=== PATIENT | male | born 1945 | race Caucasian/White ===

== ENCOUNTER 2025-11-08 22:50 | Emergency (ER) | payer MEDICARE ==
[~2025-11-08] VITALS: Ht 177.8 cm; Wt 77.7 kg
[2025-11-08] MEDS ORDERED: TDAP [DIPH/PERTUSSIS/TET] 0.5 ML VIAL IM ONE (23:00)
[2025-11-08] MEDS: TDAP [DIPH/PERTUSSIS/TET] 0.5 ML VIAL IM ONE (23:04)
[2025-11-09 00:05] LABS: PLATELET COUNT (AUTO) 70 K/uL (150-450); RED BLOOD CELL COUNT(AUTO) 3.36 MIL/uL (4.5-6.0); RED CELL DISTRIBUTION WIDTH 16.9 % (11.5-15.0)
[2025-11-09 00:06] LABS: CALCIUM, SERUM 7.7 mg/dL (8.5-10.1); CREATININE 1.6 mg/dL (0.6-1.3); SODIUM SERUM 139.0 mmol/L (136-145); UREA NITROGEN, BLOOD 65.0 mg/dL (7-18); WHITE BLOOD COUNT (AUTO) 74.6 K/uL (4.3-11.0)
[2025-11-09 00:08] LABS: INR 1.17 (0.91-1.10)
[2025-11-09 00:35] LABS: PLATELET COUNT (AUTO) 70 K/uL (150-450); RED BLOOD CELL COUNT(AUTO) 3.25 MIL/uL (4.5-6.0); RED CELL DISTRIBUTION WIDTH 16.9 % (11.5-15.0)
[2025-11-09] MEDS ORDERED: SODIUM BICARBONATE SYR 50 MEQ/50 ML DISP.SYRIN ONE (00:35)
[2025-11-09] MEDS ORDERED: CALCIUM CHLORIDE 1,000 MG/10 ML DISP.SYRIN ONE (00:36)
[2025-11-09] MEDS ORDERED: LORAZEPAM INJ 2 MG/ML VIAL ONE (00:38)
[2025-11-09 00:40] LABS: WHITE BLOOD COUNT (AUTO) 72.2 K/uL (4.3-11.0)
[2025-11-09] MEDS ORDERED: LEVETIRACETAM (500MG) 500 MG/5 ML VIAL IV ONE (00:42)
[2025-11-09 00:47] LABS: CALCIUM, SERUM 7.6 mg/dL (8.5-10.1); CREATININE 1.6 mg/dL (0.6-1.3); SODIUM SERUM 141.0 mmol/L (136-145); UREA NITROGEN, BLOOD 66.0 mg/dL (7-18)
[2025-11-09] MEDS: CALCIUM CHLORIDE 1,000 MG/10 ML DISP.SYRIN IV ONE (00:50)
[2025-11-09] MEDS: LEVETIRACETAM (500MG) 500 MG in IV NS 0.9% 100 ML IV SCH (00:50)
[2025-11-09] MEDS: LORAZEPAM INJ 2 MG/ML VIAL IV ONE (00:50)
[2025-11-09] MEDS: IV NS 0.9% 1,000 ML BAG IV ONE (00:50)
[2025-11-09] MEDS: SODIUM BICARBONATE SYR 50 MEQ/50 ML DISP.SYRIN IV ONE (00:50)
[2025-11-09 00:53] VITALS: O2SAT 98
[2025-11-09 00:53] LABS: ASPARTATE AMINOTRANSFERASE 15.0 U/L (15-37); TOTAL PROTEIN, SERUM 6.1 g/dL (6.4-8.2)
[2025-11-09] MEDS: ALBUTEROL FS 2.5 MG/3 ML VIAL.NEB NEB ONE (00:53)
[2025-11-09] MEDS ORDERED: ALBUTEROL FS 2.5 MG/3 ML VIAL.NEB ONE (00:57)
[2025-11-09 00:58] LABS: INR 1.17 (0.91-1.10)
[2025-11-09 01:02] LABS: APPEARANCE,URINE CLEAR (CLEAR); BLOOD, URINE NEGATIVE Ery/uL (NEGATIVE); LEUKOCYTE ESTERASE ,URINE NEGATIVE (NEGATIVE); NITRITE, URINE NEGATIVE (NEGATIVE); UGLUCOSE NEGATIVE (NEGATIVE)
[2025-11-09 01:03] VITALS: BP 131/45; TEMP 98.8; O2SAT 99
[2025-11-09 01:16] LABS: MONOCYTES % (MANUAL) 2 % (0-11.0); NEUTROPHILS % (MANUAL) 7 (42-76)
[2025-11-09 01:17] LABS: LYMPHOCYTES % (MANUAL) 91 % (16-48); PLATELET ESTIMATE DECREASED
[2025-11-09 01:24] LABS: ADD URINE CULTURE YES; SQUAMOUS EPITHELIAL CELL,UR Few /HPF (None Seen)
== END 2025-11-09 02:44 ==
LOC: ER 22:53
DX: S02.119A Unspecified fracture of occiput, initial encounter for closed fracture (principal); S13.4XXA Sprain of ligaments of cervical spine, initial encounter; S06.6X0A Traumatic subarachnoid hemorrhage without loss of consciousness, initial encounter; S01.01XA Laceration without foreign body of scalp, initial encounter; A41.9 Sepsis, unspecified organism; D69.6 Thrombocytopenia, unspecified; E87.5 Hyperkalemia; N17.9 Acute kidney failure, unspecified; I10 Essential (primary) hypertension; R06.02 Shortness of breath; W18.30XA Fall on same level, unspecified, initial encounter; Y93.89 Activity, other specified; Y92.89 Other specified places as the place of occurrence of the external cause; Y99.8 Other external cause status; Z20.822 Contact with and (suspected) exposure to COVID-19
CPT/HCPCS: 12001; 36415; 70450; 71045; 72125; 80048; 80053; 80503; 81001; 83605; 84145; 85007; 85027; 85730; 87040; 87086; 87426; 90471; 90715; 93005; 94640; 96365; 96375; 99291; J1953; J2060; J3490; J7030